=== PATIENT | male | born 1950 | race Caucasian/White ===

== ENCOUNTER 2018-01-05 11:32 | Inpatient (IN) | payer OTHER, MEDICAID ==
[2018-01-05 12:47] LABS: ADD MAN DIFF? NO
[2018-01-05 13:00] LABS: BASO # 0.1 x10^3/uL (0.0-0.2); BASO % 1 % (0-3); EOS # 0.3 x10^3/uL (0.0-0.7); EOS % 3 % (0-3); HEMATOCRIT 41.4 % (39.0-53.0); HEMOGLOBIN 13.6 g/dL (13.0-17.5); LYMPH # 2.6 x10^3/uL (1.0-4.8); LYMPH % 27 % (24-48); MEAN CORPUSCULAR HEMOGLOBIN 30 pg (25-35); MEAN CORPUSCULAR HGB CONC 33 g/dL (31-37); MEAN CORPUSCULAR VOLUME 91 fL (79-100); MONO # 0.7 x10^3/uL (0.0-1.1); MONO % 8 % (0-9); NEUT # 5.9 x10^3uL (1.8-7.7); NEUT % 61 % (31-73); PLATELET COUNT 238 x10^3/uL (140-400); RED BLOOD COUNT 4.54 x10^6/uL (4.30-5.70); RED CELL DISTRIBUTION WIDTH 13.2 % (11.5-14.5); WHITE BLOOD COUNT 9.6 x10^3/uL (4.0-11.0)
[2018-01-05 13:01] LABS: ANION GAP 6 (6-14); BLOOD UREA NITROGEN 15 mg/dL (8-26); CALCIUM 8.7 mg/dL (8.5-10.1); CARBON DIOXIDE 31 mmol/L (21-32); CHLORIDE 105 mmol/L (98-107); CREATININE 0.9 mg/dL (0.7-1.3); GFR 84.7; GLUCOSE 98 mg/dL (70-99); POTASSIUM 4.1 mmol/L (3.5-5.1); SODIUM 142 mmol/L (136-145)
[2018-01-05 13:06] LABS: ALBUMIN 3.4 g/dL (3.4-5.0); ALK PHOS 38 U/L (46-116); ALT (SGPT) 38 U/L (16-63); AST (SGOT) 25 U/L (15-37); DIRECT BILIRUBIN 0.1 mg/dL (0.0-0.2); MAGNESIUM 2.2 mg/dL (1.8-2.4); TOTAL BILIRUBIN 0.5 mg/dL (0.2-1.0); TOTAL PROTEIN 6.7 g/dL (6.4-8.2)
[2018-01-05 13:07] LABS: PROTHROMBIN TIME PATIENT 12.5 SEC (11.7-14.0)
[2018-01-05 13:16] LABS: CKMB MASS 2.5 ng/mL (0.0-3.6); CREATINE KINASE 128 U/L (39-308)
[2018-01-05 13:22] LABS: LACTIC ACID 1.3 mmol/L (0.4-2.0)
[2018-01-05] MEDS: MORPHINE SULFATE 4 MG/ML DISP.SYRIN. IV/SQ (16:22)
[2018-01-05] MEDS ORDERED: ONDANSETRON PF 4 MG/2 ML VIAL. IV (16:45)
[2018-01-05 18:15] LABS: LACTIC ACID 1.9 mmol/L (0.4-2.0)
[2018-01-06 03:39] LABS: ADD MAN DIFF? NO
[2018-01-06 03:46] LABS: BASO # 0.1 x10^3/uL (0.0-0.2); BASO % 1 % (0-3); EOS # 0.4 x10^3/uL (0.0-0.7); EOS % 4 % (0-3); HEMATOCRIT 40.4 % (39.0-53.0); HEMOGLOBIN 13.6 g/dL (13.0-17.5); LYMPH # 3.1 x10^3/uL (1.0-4.8); LYMPH % 33 % (24-48); MEAN CORPUSCULAR HEMOGLOBIN 31 pg (25-35); MEAN CORPUSCULAR HGB CONC 34 g/dL (31-37); MEAN CORPUSCULAR VOLUME 91 fL (79-100); MONO # 0.7 x10^3/uL (0.0-1.1); MONO % 8 % (0-9); NEUT # 5.1 x10^3uL (1.8-7.7); NEUT % 55 % (31-73); PLATELET COUNT 219 x10^3/uL (140-400); RED BLOOD COUNT 4.44 x10^6/uL (4.30-5.70); RED CELL DISTRIBUTION WIDTH 13.2 % (11.5-14.5); WHITE BLOOD COUNT 9.4 x10^3/uL (4.0-11.0)
[2018-01-06 03:56] LABS: ANION GAP 7 (6-14); BLOOD UREA NITROGEN 15 mg/dL (8-26); CALCIUM 8.7 mg/dL (8.5-10.1); CARBON DIOXIDE 30 mmol/L (21-32); CHLORIDE 106 mmol/L (98-107); CREATININE 0.9 mg/dL (0.7-1.3); GFR 84.7; GLUCOSE 102 mg/dL (70-99); POTASSIUM 3.9 mmol/L (3.5-5.1); SODIUM 143 mmol/L (136-145)
[2018-01-06] MEDS: busPIRone 5 MG TABLET. PO ×2 (13:37→21:46)
[2018-01-06] MEDS: LISINOPRIL 20 MG TABLET PO (13:37)
[2018-01-06] MEDS: ACETAMINOPHEN 325 MG TABLET. PO ×2 (13:38→21:46)
[2018-01-06] MEDS: IBUPROFEN 400 MG TABLET. PO (13:55)
[2018-01-06] MEDS: MORPHINE SULFATE 4 MG/ML DISP.SYRIN. IV (13:55)
[2018-01-06] MEDS: ALBUTEROL SULFATE 2.5 MG/3 ML NEBU. NEB ×2 (15:19→20:00)
[2018-01-06] MEDS: PIPERACILLIN/TAZOBACTAM 4.5 GM in IV NORMAL SALINE 100ML 100 ML IV ×2 (16:38→19:48)
[2018-01-06] MEDS: BUDESONIDE 0.5 MG/2 ML NEBU. NEB (20:00)
[2018-01-06] MEDS ORDERED: NON FORMULARY ITEM (Alpha Lipoic Acid 600 MG) PO (21:00)
[2018-01-06] MEDS ORDERED: NON FORMULARY ITEM (Ciclesonide (Alvesco) 6.1 GM) IH (21:00)
[2018-01-06] MEDS: FAMOTIDINE 20 MG TABLET. PO (21:44)
[2018-01-06] MEDS: PRAZOSIN 1 MG CAPSULE. PO (21:46)
[2018-01-06] MEDS: ATORVASTATIN CALCIUM 10 MG TABLET. PO (21:46)
[2018-01-06] MEDS: HYDROcodone/APAP 10/325 1 TAB TABLET PO (21:46)
[2018-01-07] MEDS: PIPERACILLIN/TAZOBACTAM 4.5 GM in IV NORMAL SALINE 100ML 100 ML IV ×4 (00:27→18:00)
[2018-01-07] MEDS: HYDROcodone/APAP 10/325 1 TAB TABLET PO ×2 (05:26→11:36)
[2018-01-07] MEDS: BUDESONIDE 0.5 MG/2 ML NEBU. NEB ×2 (07:29→20:06)
[2018-01-07] MEDS: ALBUTEROL SULFATE 2.5 MG/3 ML NEBU. NEB ×4 (07:29→20:06)
[2018-01-07] MEDS: ACETAMINOPHEN 325 MG TABLET. PO ×2 (09:51→20:33)
[2018-01-07] MEDS: busPIRone 5 MG TABLET. PO ×2 (09:51→20:33)
[2018-01-07] MEDS: CITALOPRAM 10 MG TABLET. PO ×2 (09:51→20:34)
[2018-01-07] MEDS: LISINOPRIL 20 MG TABLET PO (09:52)
[2018-01-07 13:52] LABS: ADD MAN DIFF? NO
[2018-01-07 13:53] LABS: BASO # 0.1 x10^3/uL (0.0-0.2); BASO % 1 % (0-3); EOS # 0.4 x10^3/uL (0.0-0.7); EOS % 5 % (0-3); HEMATOCRIT 38.4 % (39.0-53.0); HEMOGLOBIN 12.9 g/dL (13.0-17.5); LYMPH # 2.5 x10^3/uL (1.0-4.8); LYMPH % 36 % (24-48); MEAN CORPUSCULAR HEMOGLOBIN 31 pg (25-35); MEAN CORPUSCULAR HGB CONC 34 g/dL (31-37); MEAN CORPUSCULAR VOLUME 91 fL (79-100); MONO # 0.4 x10^3/uL (0.0-1.1); MONO % 6 % (0-9); NEUT # 3.6 x10^3uL (1.8-7.7); NEUT % 51 % (31-73); PLATELET COUNT 224 x10^3/uL (140-400); RED BLOOD COUNT 4.21 x10^6/uL (4.30-5.70); RED CELL DISTRIBUTION WIDTH 13.3 % (11.5-14.5); WHITE BLOOD COUNT 7.1 x10^3/uL (4.0-11.0)
[2018-01-07 14:14] LABS: ALBUMIN 2.9 g/dL (3.4-5.0); ALBUMIN/GLOBULIN RATIO 0.9 (1.0-1.7); ALK PHOS 37 U/L (46-116); ALT (SGPT) 34 U/L (16-63); ANION GAP 8 (6-14); AST (SGOT) 16 U/L (15-37); BLOOD UREA NITROGEN 17 mg/dL (8-26); BUN/CREATININE RATIO 15 (6-20); CALCIUM 8.1 mg/dL (8.5-10.1); CARBON DIOXIDE 27 mmol/L (21-32); CHLORIDE 107 mmol/L (98-107); CREATININE 1.1 mg/dL (0.7-1.3); GFR 67.2; GLUCOSE 145 mg/dL (70-99); POTASSIUM 3.9 mmol/L (3.5-5.1); SODIUM 142 mmol/L (136-145); TOTAL BILIRUBIN 0.5 mg/dL (0.2-1.0); TOTAL PROTEIN 6.1 g/dL (6.4-8.2)
[2018-01-07] MEDS: IBUPROFEN 400 MG TABLET. PO (15:00)
[2018-01-07] MEDS: ATORVASTATIN CALCIUM 10 MG TABLET. PO (20:33)
[2018-01-07] MEDS: FAMOTIDINE 20 MG TABLET. PO (20:33)
[2018-01-07] MEDS: LACTOBACILLUS RHAMNOSUS GG 1 CAPSULE. PO (20:34)
[2018-01-07] MEDS: PRAZOSIN 1 MG CAPSULE. PO (20:36)
[2018-01-08] MEDS: PIPERACILLIN/TAZOBACTAM 4.5 GM in IV NORMAL SALINE 100ML 100 ML IV ×3 (00:06→11:33)
[2018-01-08] MEDS: BUDESONIDE 0.5 MG/2 ML NEBU. NEB (07:45)
[2018-01-08] MEDS: ALBUTEROL SULFATE 2.5 MG/3 ML NEBU. NEB ×2 (07:45→11:46)
[2018-01-08] MEDS: LACTOBACILLUS RHAMNOSUS GG 1 CAPSULE. PO (08:47)
[2018-01-08] MEDS: busPIRone 5 MG TABLET. PO (08:47)
[2018-01-08] MEDS: LISINOPRIL 20 MG TABLET PO (08:47)
[2018-01-08] MEDS: ACETAMINOPHEN 325 MG TABLET. PO (08:48)
[2018-01-08] MEDS: HYDROcodone/APAP 10/325 1 TAB TABLET PO ×2 (08:48→15:14)
[2018-01-08 14:29] LABS: MRSA BY PCR Negative (Negative)
== END 2018-01-08 15:51 | DRG 563 ==
LOC: ER 11:32 → 5 SOUTH 16:22
DX: S83.412A Sprain of medial collateral ligament of left knee, initial encounter (principal); R60.0 Localized edema; W00.0XXA Fall on same level due to ice and snow, initial encounter; S83.242A Other tear of medial meniscus, current injury, left knee, initial encounter; X58.XXXA Exposure to other specified factors, initial encounter; S83.006A Unspecified dislocation of unspecified patella, initial encounter; Z81.8 Family history of other mental and behavioral disorders; Y93.29 Activity, other involving ice and snow; Y92.89 Other specified places as the place of occurrence of the external cause; Y99.8 Other external cause status
CPT/HCPCS: 36415; 73552; 73590; 73610; 73721; 80048; 80053; 80076; 82553; 83605; 83735; 85025; 85610; 87641; 93926; 93971; 94640; 94760; 96374; 99285; 99285-25; J2270; J2543; J7613; J7626